=== PATIENT | male | born 1955 | race American Indian/Alaskan Native ===

== ENCOUNTER 2019-06-20 11:13 | Outpatient (CLI) | payer MEDICARE ==
--- NOTE | 2019-06-20 12:42 | Vascular Lab Report ---
BILATERAL CAROTID DOPPLER ULTRASOUND INDICATION : G45.1 CAROTID ARTERY SYNDROME TECHNIQUE: Grayscale and color Doppler imaging performed through the neck. COMPARISON: None FINDINGS: Right: There is no significant atherosclerotic disease. Peak systolic velocity in the CCA is 101 cm /s with end-diastolic velocity of 17 cm/s. Peak systolic velocity in the proximal ICA is 96 cm/s with end-diastolic velocity of 29 cm/s. ICA to CCA ratio is less than 2. There is antegrade flow in the ECA and the vertebral artery. Left: There is no significant atherosclerotic disease. Peak systolic velocity in the CCA is 95 cm/s w ith end-diastolic velocity of 22 cm/s. Peak systolic velocity in the proximal ICA is 61 cm/s with end -diastolic velocity of 19 cm/s. ICA to CCA ratio is less than 2. There is antegrade flow in the ECA and the vertebral artery. IMPRESSION: No hemodynamically significant stenosis by NASCET criteria. Signer Name: Velasquez Gary Jr, MD Signed: 06/20/2019 12:37 PM Workstation Name: [id number]
== END 2019-06-20 11:14 | disposition home or self-care (01) ==
LOC: VAS 11:13
PROVIDERS: ATTEND Internal Medicine
DX: G45.1 Carotid artery syndrome (hemispheric) (principal)
CPT/HCPCS: 93880